=== PATIENT | female | born 1995 | race Caucasian/White ===

== ENCOUNTER 2019-02-14 19:06 | Inpatient (IN) | payer MEDICAID ==
[~2019-02-14] VITALS: Ht 170.2 cm; Wt 79.0 kg
[2019-02-14 20:00] VITALS: Ht 170.2 cm; Wt 79.0 kg
[2019-02-14 20:01] VITALS: BP 106/55; PULSE 120; RESP 16
[2019-02-14] MEDS ORDERED: LACTATED RINGER'S 1,000 ML IV SCH (20:38)
[2019-02-14] MEDS ORDERED: ACETAMINOPHEN 500 MG TAB PO STA (20:38)
[2019-02-14] MEDS ORDERED: LACTATED RINGER'S 1,000 ML IV ONE (21:00)
[2019-02-14] MEDS ORDERED: ACETAMINOPHEN 325 MG TAB PO PRN (21:00)
[2019-02-14] MEDS: CEFTRIAXONE 1 GM/50 ML (PMX) 50 ML IVPB SCH (21:25)
[2019-02-14] MEDS: SOD CHLORIDE 0.9% 1,000 ML IV SCH ×2 (22:08→22:13)
--- NOTE | 2019-02-14 23:33 | HP ---
Date/Time of Note Date/Time of Note DATE: 02/14/19 TIME: 23:24 OB - History Hx of Present Free Text/Dictation 23 y.o at 29w1d with c/o headache with general weakness and left side pain and sore throat one mo ago went [place] Zika screen neg BPP 8/8 and SHARI 16,8 u/a shows wbc >120 Left CVA tenderness + right CVA neg admitted for IV hydration and antibioetics(rocephin) under dx of acute pyel onephritis. Chief Complaint: left side pain with generalized weaness and headache and sore throat Estimated Due Date: May 01, 2019 : 2 Para: 0 Spontaneous : 0 Therapeutic : 0 Care: Other Ultrasounds: Other Past Family/Social History * Past Medical, Surgical, Family and Obstetric Histories reviewed from chart. Blood Type: Unknown Rubella: unknown RPR/VDRL: Unknown GBS Status: Unknown HBsAG: Unknown OB Admission Exam Vital Signs Vital Signs Vital Signs Date Temp Pulse Resp B/P (MAP) Pulse Ox O2 O2 Flow FiO2 Time Delivery Rate 02/14/19 100.1 21:22 02/14/19 120 16 106/55 Room Air 20:01 (72) Physical Exam HEENT: WNL Heart: Rhythm Normal Lungs: Clear, Equal Abdomen: WNL Extremities: Normal Reflexes: Normal Cervical Dilatation: other Station: Other Amniotic Fluid: Other Heart Rate: 150's Accelerations: Accelerations Present Decelerations: No Decelerations Varibility: Minimum Last 72 hours Lab Results CBC & BMP 02/14/19 21:20 OB Assessment/Plan Other Assessment: IUP 29w1d Plan: Other (IV hydration and rocephin 1gm q24hrs) COCO PAYAN MD Feb 14, 2019 23:33
[2019-02-15] MEDS: SOD CHLORIDE 0.9% 1,000 ML IV SCH ×3 (05:25→22:19)
[2019-02-15] MEDS: FERROUS SULFATE (EC) 325 MG TAB PO SCH (09:12)
[2019-02-15] MEDS: PRENATAL VITAMIN PO SCH (09:12)
[2019-02-15] MEDS: CEFTRIAXONE 1 GM/50 ML (PMX) 50 ML IVPB SCH (22:17)
[2019-02-16] MEDS: SOD CHLORIDE 0.9% 1,000 ML IV SCH (05:07)
[2019-02-16] MEDS: FERROUS SULFATE (EC) 325 MG TAB PO SCH (09:32)
[2019-02-16] MEDS: PRENATAL VITAMIN PO SCH (09:32)
--- NOTE | 2019-02-16 10:39 | PD.PPDC ---
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
[2019-02-16] MEDS ORDERED: NITR-58 PO (10:40)
--- NOTE | 2019-02-16 10:43 | DS ---
Date/Time of Note Date/Time of Note DATE: 02/16/19 TIME: 10:41 Obstetrical Discharge Record Final Diagnosis Final Diagnosis: not delivered Other Final Diagnosis Pyelonephritis Complications Infection (left pyelonephritis) Augmentation: No Induction: No Rupture of Membranes: No Condition on Discharge Physical Assessment Last Vitals: T=98.0 BP 112/54 Voiding: Yes Bowel Movement: Yes Breast: Soft, non-tender Fundus: Other (gravid) Abdomen and Incision: No CVAT on either side Calf Tenderness: No Patient Condition: Good TODD CHACON MD Feb 16, 2019 10:43
[2019-02-16] MEDS ORDERED: SOD CHLORIDE 0.9% 1,000 ML IV SCH (22:00)
== END 2019-02-16 11:38 | disposition home or self-care (01) | DRG 833 ==
LOC: OBT 19:06 → L-D 19:08 → OBT 21:00 → PP1 21:00
PROVIDERS: ADMIT Obstetrics & Gynecology; ATTEND Obstetrics & Gynecology
DX: O23.03 Infections of kidney in pregnancy, third trimester (principal); Z3A.29 29 weeks gestation of pregnancy
CPT/HCPCS: 36415; 76818; 81001; 85025; 85610; 85730; 86592; 86850; 86900; 86901; 87086; G0463; J0696; J7120